=== PATIENT | male | born 1980 | race Caucasian/White ===

== ENCOUNTER 2021-08-22 12:12 | Inpatient (IN) | payer MEDICAID ==
[~2021-08-22] VITALS: Ht 175.3 cm; Wt 71.2 kg
[2021-08-22 12:34] VITALS: BP 157/89
--- NOTE | 2021-08-22 12:39 | NUR ---
PT TO [facility] OLSEN
[2021-08-22 13:37] LABS: ALBUMIN 3.8 g/dL (3.4-5.0); ANION GAP 11.3 (8-16); CARBON DIOXIDE 29.7 mmol/L (21-32); CREATININE 0.9 mg/dL (0.6-1.3); TOTAL BILIRUBIN 0.5 mg/dL (0.0-1.0)
[2021-08-22 14:11] LABS: BASOPHILS % (AUTO) 0.2 % (0.0-2.0); EOSINOPHILS # (AUTO) 0.1 K/uL (0-0.4); HEMATOCRIT 40.5 % (36-52); LYMPHOCYTES # (AUTO) 2.6 K/uL (2.0-11.5); MEAN CORPUSCULAR HEMOGLOBIN 31 pg (27-31); MEAN CORPUSCULAR HGB CONC 35 g/dL (33-37); MEAN CORPUSCULAR VOLUME 88.8 fL (80-94); MONOCYTES # (AUTO) 1.6 K/uL (0.8-1.0); MONOCYTES % (AUTO) 12.5 % (1.7-9.3); NEUTROPHILS # (AUTO) 8.6 K/uL (1.8-7.7); NEUTROPHILS % (AUTO) 66.3 % (42.2-75.2); PLATELET COUNT (AUTO) 363 K/uL (140-450); RED BLOOD CELL COUNT(AUTO) 4.56 MIL/uL (4.20-6.10); RED CELL DISTRIBUTION WIDTH 13.5 % (11.6-13.7)
[2021-08-22] MEDS ORDERED: NACL 0.9% 1,000 ML IV ONE (16:05)
[2021-08-22] MEDS ORDERED: PIPERACILLIN/TAZOBACTAM 3.375 GM in DEXTROSE 5% 50 ML IV ONE (16:05)
[2021-08-22] MEDS ORDERED: hydrALAZINE 20 MG/ML VIAL IM ONE (17:00)
[2021-08-22] MEDS ORDERED: PIPERACILLIN/TAZOBACTAM 3.375 GM VIAL IV ONE (17:03)
[2021-08-22 17:09] LABS: PROTHROMBIN TIME 9.6 secs (10.8-13.4)
[2021-08-22] MEDS ORDERED: HYDROmorphone 1 MG/ML AMP IVP PRN (17:40)
[2021-08-22] MEDS ORDERED: POTASSIUM CHLORIDE 40 MEQ, LIDOCAINE MPF 1% 25 MG in NACL 0.9% 250 ML IV PRN (17:40)
[2021-08-22] MEDS ORDERED: ONDANSETRON 4 MG/2 ML VIAL IM/IVP PRN (17:40)
[2021-08-22] MEDS ORDERED: ACETAMINOPHEN 325 MG TAB PO PRN (17:40)
[2021-08-22] MEDS ORDERED: PIPERACILLIN/TAZOBACTAM 3.375 GM in DEXTROSE 5% 50 ML IV SCH (18:00)
--- NOTE | 2021-08-22 18:00 | NUR ---
PT WALKED TO BED WITH STEADY GAIT
--- NOTE | 2021-08-22 18:02 | NUR ---
PT MOVED TO ER BED 11
--- NOTE | 2021-08-22 18:10 | NUR ---
40 y/o M BIB self from home c/o lower abdominal pain x 5 days causing weakness. Pt A&Ox4, ambulatory, states 9/10, sharp/cramping/intermittent, non-radiating pain across low abd. States alleviates with walking at times. Denies nausea, vomiting, diarrhea, constipation, dysuria, back pain, injury. Tylenol at 0800 today with minor relief. Bed locked in lowest position, side rails x 1. PMH/Sx/Meds: Denies NKDA
[2021-08-22] MEDS: DEXT 5% /NACL 0.9% 1,000 ML IV SCH (18:20)
[2021-08-22 19:04] LABS: PROTHROMBIN TIME 9.7 secs (10.8-13.4)
[2021-08-22 19:06] LABS: AMYLASE 61 U/L (25-115); CHOL/HDL RATIO 3.2 (1-4.5); HDL CHOLESTEROL 61 mg/dL (40-60); LDL (CALC) 114 mg/dL (60-100); LIPASE 121 U/L (73-393); MAGNESIUM 2.3 mg/dL (1.8-2.4); PHOSPHORUS 4.7 mg/dL (2.5-4.9); THYROID STIMULATING HORMONE 0.96 uIU/mL (0.34-3.74); TRIGLYCERIDES 107 mg/dL (30-150)
--- NOTE | 2021-08-22 19:16 | NUR ---
Report and transfer of care given to MIRNA Sanderson
[2021-08-23] MEDS ORDERED: PIPERACILLIN/TAZOBACTAM 3.375 GM in DEXTROSE 5% 50 ML IV SCH ×2
[2021-08-23] MEDS ORDERED: PIPERACILLIN/TAZOBACTAM 3.375 GM VIAL IV ONE ×5 (00:11→23:30)
[2021-08-23] MEDS: PIPERACILLIN/TAZOBACTAM 3.375 GM in DEXTROSE 5% 50 ML IV SCH ×5 (00:26→23:53)
[2021-08-23] MEDS: DEXT 5% /NACL 0.9% 1,000 ML IV SCH ×3 (04:42→23:28)
[2021-08-23 07:19] LABS: BASOPHILS % (AUTO) 0.4 % (0.0-2.0); EOSINOPHILS # (AUTO) 0.1 K/uL (0-0.4); EOSINOPHILS % (AUTO) 1.1 % (0.0-4.0); HEMATOCRIT 37.2 % (36-52); HEMOGLOBIN 12.7 g/dL (12.0-18.0); LYMPHOCYTES % (AUTO) 18.3 % (20.5-51.1); MEAN CORPUSCULAR HEMOGLOBIN 30 pg (27-31); MEAN CORPUSCULAR HGB CONC 34 g/dL (33-37); MEAN CORPUSCULAR VOLUME 88.3 fL (80-94); MONOCYTES # (AUTO) 1.1 K/uL (0.8-1.0); MONOCYTES % (AUTO) 9.9 % (1.7-9.3); NEUTROPHILS # (AUTO) 7.7 K/uL (1.8-7.7); NEUTROPHILS % (AUTO) 70.3 % (42.2-75.2); PLATELET COUNT (AUTO) 326 K/uL (140-450); RED BLOOD CELL COUNT(AUTO) 4.21 MIL/uL (4.20-6.10); RED CELL DISTRIBUTION WIDTH 13.5 % (11.6-13.7)
--- NOTE | 2021-08-23 07:25 | NUR ---
TRANSFER OF CARE REPORT GIVEN TO MIRNA SANCHEZ
--- NOTE | 2021-08-23 07:30 | NUR ---
PT. A/OX4 IN NO ACUTE DISTRESS OR SOB. RESTING COMFORTABLY, WILL CONTINUE TO MONITOR.
[2021-08-23 07:34] LABS: CARBON DIOXIDE 27.5 mmol/L (21-32); CREATININE 0.9 mg/dL (0.6-1.3); POTASSIUM 4.5 mmol/L (3.5-5.1)
[2021-08-23 08:07] LABS: T4 (THYROXINE) 8.9 ug/dL (4.5-12.0)
--- NOTE | 2021-08-23 08:47 | NUR ---
Dr Gu at bedside to evaluate pt at bedside.
[2021-08-23] MEDS: PANTOPRAZOLE 40 MG INJ VIAL IVP SCH (09:07)
--- NOTE | 2021-08-23 10:43 | NUR ---
PT. AMBULATED TO THE BR. DENIES ANY PAIN AT THIS TIME BUT C/O OF MINIMAL INTERMITENT DISCOMFORT.
--- NOTE | 2021-08-23 12:10 | NUR ---
Assisted disconnected to ambulate to bathroom, pt returned to bed 11 and placed back on monitor
--- NOTE | 2021-08-23 14:09 | NUR ---
PATIENT HAS BEEN SCREENED AND CATEGORIZED LOW NUTRITION RISK. PATIENT WILL BE SEEN WITHIN 7 DAYS OF ADMISSION. 08/29/[address]
--- NOTE | 2021-08-23 15:50 | NUR ---
Patient appears to be resting comfortably in bed. Vital Signs within normal limits. Respirations even and unlabored.
--- NOTE | 2021-08-23 16:16 | NUR ---
Pt report given to MIRNA Lanier. Transfer of care at this time.
--- NOTE | 2021-08-23 17:18 | NUR ---
PT AMBULATED TO RESTROOM
[2021-08-23] MEDS: MORPHINE SULFATE 2 MG/ML SYR IVP PRN (18:37)
--- NOTE | 2021-08-23 19:00 | NUR ---
Patient appears to be resting comfortably in bed. Vital Signs within normal limits. Respirations even and unlabored.
--- NOTE | 2021-08-23 20:55 | NUR ---
PT WAS ADMITTED TO [facility] DEPT FROM ER THRU [facility] WITH DX OF ACUTE DIVERTICULITIS WITH PERFORATION. PT IS AOX4, ABLE TO VERBALIZE NEEDS AND ABLE TO FOLLOW COMMANDS. NO SIGN OF DISTRESS NOTED. NO S/S OF PAIN NOTED. PT IS ON NPO, AND ON ROOM AIR. PT HAS IV ON RIGHT AC GAUGE 22 SALINE LOCK. ORIENTED TO HOSPITAL/ROOM, BED BUTTONS, AND CALL LIGHT. ALL SAFETY MEASURES IMPLEMENTED. CALL LIGHT WITHIN REACH, BED IN LOW POSITION AND BED WHEELS LOCK.
--- NOTE | 2021-08-23 21:00 | NUR ---
Patient will be admitted to care of DR PARIKH. Admited to TELE. Will go to room 111B. Belongings list completed. Report to LESLY.
--- NOTE | 2021-08-23 23:53 | NUR ---
SCHEDULE MEDICATION WAS GIVEN TO PT PER MD ORDER. PT TOLERATED IT WELL. ALL SAFETY MEASURES GIVEN. CALL LIGHT WITHIN REACH.
--- NOTE | 2021-08-24 00:30 | NUR ---
PT IS ON SLEEP, CHEST RISE AND FALL SYMMETRICALLY NOTED SATING AT 97 WITH NORMAL SINUS RHYTHM. ALL SAFETY MEASURES IMPLEMENTED.
[2021-08-24 04:00] VITALS: BP 129/87
--- NOTE | 2021-08-24 04:00 | NUR ---
PT STILL ON SLEEP, CHEST RISE AND FALL SYMMETRICALLY NOTED WITH PULSE OF 88 AND WITH NORMAL SINUS RHYTHM. ALL SAFETY MEASURES IMPLEMENTED.
[2021-08-24] MEDS ORDERED: PIPERACILLIN/TAZOBACTAM 3.375 GM VIAL IV ONE (05:07)
[2021-08-24] MEDS: PIPERACILLIN/TAZOBACTAM 3.375 GM in DEXTROSE 5% 50 ML IV SCH ×4 (05:20→23:13)
[2021-08-24 07:10] LABS: BASOPHILS % (AUTO) 0.2 % (0.0-2.0); EOSINOPHILS # (AUTO) 0.1 K/uL (0-0.4); EOSINOPHILS % (AUTO) 0.6 % (0.0-4.0); HEMATOCRIT 38.1 % (36-52); HEMOGLOBIN 13.1 g/dL (12.0-18.0); LYMPHOCYTES # (AUTO) 1.7 K/uL (2.0-11.5); LYMPHOCYTES % (AUTO) 15.6 % (20.5-51.1); MEAN CORPUSCULAR HEMOGLOBIN 30 pg (27-31); MEAN CORPUSCULAR HGB CONC 34 g/dL (33-37); MEAN CORPUSCULAR VOLUME 88.4 fL (80-94); MONOCYTES # (AUTO) 0.9 K/uL (0.8-1.0); MONOCYTES % (AUTO) 8.3 % (1.7-9.3); NEUTROPHILS # (AUTO) 8.3 K/uL (1.8-7.7); NEUTROPHILS % (AUTO) 75.3 % (42.2-75.2); PLATELET COUNT (AUTO) 333 K/uL (140-450); RED BLOOD CELL COUNT(AUTO) 4.31 MIL/uL (4.20-6.10); RED CELL DISTRIBUTION WIDTH 13.1 % (11.6-13.7)
--- NOTE | 2021-08-24 07:20 | NUR ---
PT IS STABLE. ENDORSED PT TO MORNING SHIFT FOR CONTINUITY OF CARE.
[2021-08-24 07:22] LABS: ANION GAP 12.9 (8-16); POTASSIUM 3.9 mmol/L (3.5-5.1)
--- NOTE | 2021-08-24 07:31 | NUR ---
RECEIVED REPORT FROM FIBER DESIGNER NURSE FOR CONTINUITY OF CARE. PT IS WAKE, A&O4 ABLE TO COMMUNICATE NEEDS. RESPIRATIONS EVEN AND UNLABORED ON ROOM AIR. NO DISTRESS NOTED. PT ON TELE MONITOR. SKIN IS INTACT, WARM AND DRY TO TOUCH. IV SITE AT LEFT HAND G22, INFUSING D5 NS AT 100ML/HR. PT ON NPO, SIGNS AT THE DOOR PLACE, PT AND ROCKET ENGINE COMPONENT MECHANIC MADE AWARE. CALL LIGHT WITHIN REACH. SAFETY PRECAUTIONS IN PLACE. WILL CONTINUE TO MONITOR.
[2021-08-24 08:00] VITALS: BP 137/86
--- NOTE | 2021-08-24 08:00 | NUR ---
Patient's Plan of Care was discussed and reviewed with SHARITA: ELIZABETH
[2021-08-24] MEDS: DEXT 5% /NACL 0.9% 1,000 ML IV SCH ×2 (09:00→18:46)
[2021-08-24] MEDS: PANTOPRAZOLE 40 MG INJ VIAL IVP SCH (09:51)
--- NOTE | 2021-08-24 09:52 | NUR ---
IV PROTONIX GIVEN BY MIRNA VARGAS.
--- NOTE | 2021-08-24 09:56 | NUR ---
LATE ENTRY- IV ZOSYN DISCONTINUED AT 2100.
--- NOTE | 2021-08-24 11:32 | NUR ---
IV ABX ADMINISTERED BY MIRNA VARGAS. NO ADVERSE REACTION NOTED. CALL LIGHT WITHIN REACH. SAFETY PRECAUTIONS IN PLACE. WILL CONTINUE TO MONITOR.
[2021-08-24 12:00] VITALS: BP 140/94
--- NOTE | 2021-08-24 13:00 | NUR ---
DC PLANNING: THE PATIENT PRESENTED WITH C/O ABDOMINAL PAIN X 3 DAYS. WBC'S 13, K+ 5, CT ABD/PELVIS SHOWS ACUTE DIVERTICULITIS WITH SMALL CONTAINED PERFORATION. PATIENT ADMITTED WITH DX OF DIVERTICULITIS WITH PERFORATION, PLAN FOR BOWEL REST AND SURGERY CONSULT, DECISION MADE THAT PATIENT DOES NOT NEED SURGERY. ON PROTONIX IV, MORPHINE AND IVF'S. PATIENT REMAINS NPO TODAY, PATIENT CONTINUES TO HAVE ABDOMINAL PAIN, 11/14. CM WILL FOLLOW. Addendum: 08/26/21 at 1130 by Geno Gillespie CM DC PLANNING: PATIENT TOLERATING ADVANCED DIET, PLAN TO DC HOME WITH SPOUSE TODAY. CM WILL FOLLOW.
[2021-08-24 13:16] LABS: APPEARANCE,URINE CLEAR (CLEAR); BILIRUBIN,URINE NEGATIVE (NEGATIVE); BLOOD, URINE NEGATIVE (NEGATIVE); COLOR,URINE YELLOW (YELLOW); LEUKOCYTE ESTERASE ,URINE NEGATIVE (NEGATIVE); NITRITE, URINE NEGATIVE (NEGATIVE); UGLUCOSE NEGATIVE (NEGATIVE)
[2021-08-24 13:38] LABS: BARBITURATE, URINE NEGATIVE ng/ml (NEG <=200); BENZODIAZEPINE, URINE NEGATIVE ng/mL (NEG <=200); CANNABINOID, URINE NEGATIVE ng/mL (NEG <=50); COCAINE, URINE POSITIVE ng/mL (NEG <=300); OPIATE, URINE POSITIVE ng/mL (NEG <=2000); PHENCYCLIDINE SCREEN,URINE NEGATIVE ng/mL (NEG <=25)
[2021-08-24] MEDS: MORPHINE SULFATE 2 MG/ML SYR IVP PRN (14:27)
--- NOTE | 2021-08-24 14:28 | NUR ---
PATIENT COMPLAINS OF PAIN, MORPHINE PRN GIVEN AT THIS TIME. WILL CONTINUE TO MONITOR.
[2021-08-24 16:00] VITALS: BP 141/92
--- NOTE | 2021-08-24 17:08 | NUR ---
DID ROUNDS. PT IS SLEEPING. RESPIRATIONS EVEN AND UNLABORED. NO DISTRESS NOTED. WITH FAMILY MEMBER AT BEDSIDE. CALL LIGHT WITHIN REACH. SAFETY PRECAUTIONS IN PLACE.
--- NOTE | 2021-08-24 19:13 | NUR ---
ENDORSED PT TO DIRECTOR CHILD NURSE FOR CONTINUITY OF CARE. ALL NEEDS MET THROUGHOUT SHIFT. PT IS STABLE.
--- NOTE | 2021-08-24 19:14 | NUR ---
RECEIVED PT FROM MORNING SHIFT NURSE. PT IS LYING ON THE BED WITH HIS VISITOR AT THE BEDSIDE. PT IS AOX4, ABLE TO VERBALIZE NEEDS AND ABLE TO FOLLOW COMMANDS. PT IS ON NPO AND ON ROOM AIR. PT HAS IV ON LEFT HAND GAUGE 22 RUNNING WITH D5NS AT 100ML/HR. NO S/S OF SOB/DISTRESS NOTED. NO COMPLAIN OF PAIN AT THIS TIME. ALL SAFETY MEASURES IMPLEMENTED. CALL LIGHT WITHIN REACH, BED IN LOW POSITION AND BED WHEELS LOCK.
[2021-08-24 20:00] VITALS: BP 138/88
--- NOTE | 2021-08-24 20:00 | NUR ---
PT TEMPERATURE IS 99.9, COOLING MEASURES WAS APPLIED. CALL LIGHT WITHIN REACH AND ALL SAFETY MEASURES IMPLEMENTED.
--- NOTE | 2021-08-24 21:00 | NUR ---
RECHECKED ORAL TEMPERATURE AND ITS NOW 98.7. PT WANTS CONTINUE TO APPLY THE WET TOWEL ON HIS FOREHEAD. NO COMPLAIN OF HEADACHE OR DIZZINESS AND NO S/S OF SOB/DISTRESS AND PAIN /DISCOMFORT NOTED. CALL LIGHT WITHIN REACH AND ALL SAFETY MEASURES IMPLEMENTED.
[2021-08-25] VITALS: BP 130/83
--- NOTE | 2021-08-25 | NUR ---
PT IS ASLEEP. CHEST RISE AND FALL SYMMETRICALLY NOTED SATING AT 97% WITH NORMAL SINUS RHYTHM. CALL LIGHT WITHIN REACH AND ALL SAFETY MEASURES IMPLEMENTED.
[2021-08-25] MEDS: DEXT 5% /NACL 0.9% 1,000 ML IV SCH ×2 (00:31→11:37)
--- NOTE | 2021-08-25 02:00 | NUR ---
PT STILL ASLEEP. CHEST RISE AND FALL SYMMETRICALLY NOTED. CALL LIGHT WITHIN REACH AND ALL SAFETY MEASURES IMPLEMENTED.
[2021-08-25 04:00] VITALS: BP 124/78
--- NOTE | 2021-08-25 04:00 | NUR ---
PT VS IS NORMAL WHILE SLEEPING, BP- 124/78, T-97.1 P-82 R-18 SATING AT 97%. NO S/S OF RESPIRATORY DISTRESS NOTED. CALL LIGHT WITHIN REACH AND ALL SAFETY MEASURES IMPLEMENTED.
[2021-08-25] MEDS: PIPERACILLIN/TAZOBACTAM 3.375 GM in DEXTROSE 5% 50 ML IV SCH ×3 (05:12→17:12)
--- NOTE | 2021-08-25 05:12 | NUR ---
SCHEDULED MEDICATION WAS GIVEN TO PT PER MD ORDER. PT SAID THAT HE JUST HAD BOWEL MOVEMENT AND URINATE AT THIS TIME. CALL LIGHT WITHIN REACH AND ALL SAFETY MEASURES IMPLEMENTED.
--- NOTE | 2021-08-25 07:20 | NUR ---
RECEIVED REPORT FROM WELCOME DESK AGENT NURSE FOR CONTINUITY OF CARE. PT ASLEEP IN BED, EASILY AROUSABLE. BREATHING SYMMETRICAL ON ROOM AIR. PER REPORT PT HAD AN EPISODE OF ELEVATED TEMP LAST NIGHT 99.9, LATEST TEMP 97.1. FLACC O. LEFT HAND 22G WITH D5NS AT 100CC. CALL LIGHT WITHIN REACH. ALL SAFETY MEASURES IN PLACE.
--- NOTE | 2021-08-25 07:30 | NUR ---
PT IS STABLE. ENDORSED PT TO MORNING SHIFT NURSE FOR CONTINUITY OF CARE.
[2021-08-25 07:53] LABS: HEMATOCRIT 36.6 % (36-52); HEMOGLOBIN 12.6 g/dL (12.0-18.0); RED BLOOD CELL COUNT(AUTO) 4.18 MIL/uL (4.20-6.10); WHITE BLOOD COUNT (AUTO) 10.5 K/uL (4.8-10.8)
[2021-08-25 07:54] LABS: BASOPHILS # (AUTO) 0.1 K/uL (0.00-0.22); BASOPHILS % (AUTO) 0.5 % (0.0-2.0); EOSINOPHILS # (AUTO) 0.1 K/uL (0-0.4); EOSINOPHILS % (AUTO) 0.9 % (0.0-4.0); LYMPHOCYTES # (AUTO) 1.5 K/uL (2.0-11.5); LYMPHOCYTES % (AUTO) 14.2 % (20.5-51.1); MEAN CORPUSCULAR HEMOGLOBIN 30 pg (27-31); MEAN CORPUSCULAR HGB CONC 34 g/dL (33-37); MEAN CORPUSCULAR VOLUME 87.5 fL (80-94); MONOCYTES # (AUTO) 0.9 K/uL (0.8-1.0); MONOCYTES % (AUTO) 8.2 % (1.7-9.3); NEUTROPHILS % (AUTO) 76.2 % (42.2-75.2); PLATELET COUNT (AUTO) 374 K/uL (140-450)
[2021-08-25 08:00] VITALS: BP 132/80
[2021-08-25] MEDS: PANTOPRAZOLE 40 MG INJ VIAL IVP SCH (08:23)
--- NOTE | 2021-08-25 08:28 | NUR ---
SCHEDULED AM MEDICATION GIVEN ORDERED. NO C/O PAIN AT THIS TIME. PT STATES FEEL A LITTLE BETTER, PAIN COMES AND GOES.
[2021-08-25 08:44] LABS: ANION GAP 14.1 (8-16); CARBON DIOXIDE 26.3 mmol/L (21-32); CREATININE 0.9 mg/dL (0.6-1.3); POTASSIUM 4.4 mmol/L (3.5-5.1)
--- NOTE | 2021-08-25 10:13 | NUR ---
PT TRANSFERRED TO [facility]
--- NOTE | 2021-08-25 11:37 | NUR ---
SCHEDULED ZOSYN GIVEN ORDERED. PT DENIES PAIN AT THIS TIME
[2021-08-25] MEDS: MORPHINE SULFATE 2 MG/ML SYR IVP PRN ×2 (13:24→22:58)
--- NOTE | 2021-08-25 15:40 | NUR ---
PT AWAKE IN BED. BREATHING SYMMETRICAL ON ROOM AIR. NO C/O PAIN.
--- NOTE | 2021-08-25 18:23 | NUR ---
PT'S TEMP 101.6 AXILLARY. PRN TYLENOL GIVEN FOR ELEVATED TEMP. ICE PACKS APPLIED. COOLING MEASURES IN PLACE.
--- NOTE | 2021-08-25 19:10 | NUR ---
TEMP WENT DOWN TO 99.8, COOLING MEASURES IN PLACE
--- NOTE | 2021-08-25 19:26 | NUR ---
ENDORSED PT TO LANGUAGE THERAPIST NURSE FOR CONTINUITY OF CARE.
--- NOTE | 2021-08-25 19:30 | NUR ---
RECEIVED BEDSIDE REPORT FROM DAY SHIFT RN FOR CONTINUITY OF CARE. PT IS AWAKE. PT IS BY BEDSIDE. PT IS ON RA NOT IN ANY ACUTE DISTRESS. PT HAS LEFT HAND 22 GAUGE WITH D5 NS 100 CC/HR. PLAN OF CARE DISCUSSED. CALL LIGHT WITHIN REACH. WILL CONTINUE TO OBSERVE THE PT.
--- NOTE | 2021-08-25 23:10 | NUR ---
PT COMPLAIN OF ABD PAIN 11/14. GAVE MORPHINE PER MD ORDER. NO OTHER COMPLAINS. WILL CONTINUE TO MONITOR THE PT.
[2021-08-26] MEDS: PIPERACILLIN/TAZOBACTAM 3.375 GM in DEXTROSE 5% 50 ML IV SCH ×3 (00:20→11:35)
[2021-08-26] MEDS: DEXT 5% /NACL 0.9% 1,000 ML IV SCH ×2 (00:20→11:00)
--- NOTE | 2021-08-26 00:23 | NUR ---
SCHEDULE MEDICATION GIVEN. NO ADVERSE REACTION NOTED. PT HAD NO COMPLAINS RIGHT NOW. WILL CONTINUE TO OBSERVE THE PT.
--- NOTE | 2021-08-26 02:15 | NUR ---
PT IS SLEEPING IN BED COMFORTABLY. PT IS NOT IN ANY ACUTE DISTRESS. BREATHING EVEN AND UNLABORED. IVF RUNNING PER MD ORDER. CALL LIGHT WITHIN REACH. WILL CONTINUE TO MONITOR THE PT.
[2021-08-26 04:00] VITALS: BP 115/69
--- NOTE | 2021-08-26 05:20 | NUR ---
CHECKED IN ON PT. PT STATES HE IS DOING OKAY AND HAS NO COMPLAINS. PT IS LAYING IN BED WATCHING TELEVISION WITH NO SIGNS OF DISTRESS. IVF RUNNING PER MD ORDER. CALL LIGHT WITHIN REACH. WILL CONTINUE TO MONITOR THE PT.
[2021-08-26 07:10] LABS: ANION GAP 13.5 (8-16); CARBON DIOXIDE 26.7 mmol/L (21-32); CREATININE 0.9 mg/dL (0.6-1.3); POTASSIUM 4.2 mmol/L (3.5-5.1)
[2021-08-26 07:12] LABS: BASOPHILS % (AUTO) 0.4 % (0.0-2.0); EOSINOPHILS # (AUTO) 0.1 K/uL (0-0.4); EOSINOPHILS % (AUTO) 0.7 % (0.0-4.0); HEMATOCRIT 35.4 % (36-52); HEMOGLOBIN 12.1 g/dL (12.0-18.0); LYMPHOCYTES # (AUTO) 1.7 K/uL (2.0-11.5); LYMPHOCYTES % (AUTO) 15.3 % (20.5-51.1); MEAN CORPUSCULAR HEMOGLOBIN 30 pg (27-31); MEAN CORPUSCULAR HGB CONC 34 g/dL (33-37); MONOCYTES # (AUTO) 0.9 K/uL (0.8-1.0); MONOCYTES % (AUTO) 8.7 % (1.7-9.3); NEUTROPHILS # (AUTO) 8.1 K/uL (1.8-7.7); NEUTROPHILS % (AUTO) 74.9 % (42.2-75.2); PLATELET COUNT (AUTO) 383 K/uL (140-450); RED BLOOD CELL COUNT(AUTO) 4.02 MIL/uL (4.20-6.10); RED CELL DISTRIBUTION WIDTH 13.1 % (11.6-13.7); WHITE BLOOD COUNT (AUTO) 10.8 K/uL (4.8-10.8)
--- NOTE | 2021-08-26 07:34 | NUR ---
ENDORSE PT TO DAY SHIFT RN FOR CONTINUITY OF CARE. PT IS STABLE.
--- NOTE | 2021-08-26 07:35 | NUR ---
RECEIVED REPORT FROM MEDICAL AND HEALTH SERVICES MANAGER NURSE FOR CONTINUITY OF CARE. PT AWAKE IN BED, A/OX4. BREATHING SYMMETRICAL ON ROOM AIR. NO C/O PAIN AT THIS TIME. LEFT HAND 22G WITH D5NS AT 100CC/HR. CALL LIGHT WITHIN REACH. ALL SAFETY MEASURES IN PLACE.
[2021-08-26] MEDS: PANTOPRAZOLE 40 MG INJ VIAL IVP SCH (08:03)
--- NOTE | 2021-08-26 08:08 | NUR ---
SCHEDULED AM MEDICATION GIVEN ORDERED. DENIES PAIN AT THIS TIME
[2021-08-26] MEDS ORDERED: LACT1.4C PO (10:41)
[2021-08-26] MEDS ORDERED: ACET-2619 PO (10:41)
[2021-08-26] MEDS ORDERED: METR-435 PO (10:41)
[2021-08-26] MEDS ORDERED: LEVO-315 PO (10:41)
[2021-08-26 10:49] VITALS: BP 115/69
--- NOTE | 2021-08-26 10:58 | NUR ---
PT FOR DISCHARGE, MADE AWARE OF ORDER. PT'S AT BEDSIDE ALSO AWARE.
--- NOTE | 2021-08-26 11:34 | NUR ---
PT STATES WILL DISCHARGE TO HOME AFTER LUNCH. UNABLE TO GIVE IV ZOSYN, PT'S IV LINE INFILTRATED AND LEAKING. PT DOESN'T WANT TO GET ANOTHER IV LINE SINCE HE'S GETTING DISCHARGED.
--- NOTE | 2021-08-26 12:20 | NUR ---
PT DISCHARGED TO HOME WITH BELONGINGS AND PAPERWORKS, ACCOMPANIED BY . OFFERED WHEELCHAIR, PT REFUSED. PT AMBULATES WITH STEADY GAIT. DISCHARGE INSTRUCTIONS PROVIDED AND VERBALIZED UNDERSTANDING. IV LINE REMOVED, CATHETER INTACT, NO BLEEDING NOTED.
== END 2021-08-26 12:20 | disposition home or self-care (01) | DRG 720 ==
LOC: MED 12:12 → MTU 17:09
PROVIDERS: ADMIT Family Medicine; ATTEND Family Medicine
DX: A41.9 Sepsis, unspecified organism (principal); K57.20 Diverticulitis of large intestine with perforation and abscess without bleeding; E78.5 Hyperlipidemia, unspecified; Z20.822 Contact with and (suspected) exposure to COVID-19
CPT/HCPCS: 36415; 71045; 80048; 80053; 80305; 81003; 82150; 83036; 83690; 83735; 83880; 84100; 84436; 84439; 84443; 84479; 84484; 85025; 85610; 85730; 87040; 87081; 93005; 96361; 96365; 99285; C9113; J1170; J2270; J2543; J7060